=== PATIENT | male | born 1980 ===

== ENCOUNTER 2022-04-27 09:10 | Inpatient (IN) | payer SELFPAY ==
[2022-04-27] MEDS: NALOXONE 2 MG/2 ML INJ IV SCH ×2 (09:47→10:31)
[2022-04-27] MEDS: SODIUM CHLORIDE 0.9% 1000 ML 1,000 ML IV ONE ×2 (09:47→10:00)
[2022-04-27 09:51] LABS: Basophils % (Auto) 0.2 % (0.0-1.8); Eosinophils % (Auto) 0.1 % (0.0-4.3); Hematocrit 45.8 % (35.5-45.6); Hemoglobin 15.3 gm/dl (11.8-15.2); Lymphocytes # (Auto) 1.3 K/mm3 (1.2-5.4); Lymphocytes % (Auto) 6.3 % (13.4-35.0); Mean Corpuscular HGB Conc 33 % (32-34); Mean Corpuscular Volume 94 fl (84-94); Monocytes # (Auto) 0.7 K/mm3 (0.0-0.8); Monocytes % (Auto) 3.7 % (0.0-7.3); Platelet Count 135 K/mm3 (140-440); Red Blood Count 4.88 M/mm3 (3.65-5.03); Red Cell Distribution Width 16.2 % (13.2-15.2)
[2022-04-27 10:11] LABS: Albumin 4.2 g/dL (3.9-5); Calcium 8.2 mg/dL (8.4-10.2)
[2022-04-27 10:23] LABS: Chol/HDL Ratio 2.69 %
--- NOTE | 2022-04-27 11:49 | XRay Report ---
CHEST 1 VIEW 04/27/2022 11:36 AM INDICATION / CLINICAL INFORMATION: Dyspnea. COMPARISON: None available. FINDINGS: SUPPORT DEVICES: None. HEART / MEDIASTINUM: No significant abnormality. LUNGS / PLEURA: Hazy opacities in both mid and lower lungs No pneumothorax. ADDITIONAL FINDINGS: No significant additional findings. IMPRESSION: 1. Hazy opacities in both mid and lower lungs, concerning for multifocal pneumonia. Signer Name: Bj Richardson MD Signed: 04/27/2022 11:45 AM Workstation Name: [id number]
[2022-04-27] MEDS ORDERED: cefTRIAXone/NS 1 GM/50 ML 1 GM/50 ML BAG IV ONE (12:06)
[2022-04-27] MEDS ORDERED: dexAMETHasone 4 MG/ML VIAL IV ONE (12:16)
[2022-04-27 12:54] LABS: Amphetamine Screen,Urine Negative; Benzodiazepines Screen,Urine Negative; Methadone Screen,Urine Negative; Mucus,Urine FEW /HPF; Opiate Screen,Urine Negative
[2022-04-27 13:03] LABS: Color,Urine Straw (Yellow)
[2022-04-27 13:05] LABS: Cannabinoid Screen,Urine Positive; Cocaine Screen,Urine Positive
--- NOTE | 2022-04-27 14:21 | Cat Scan Report ---
CTA CHEST WITH CONTRAST INDICATION / CLINICAL INFORMATION: SOB 100ml of [id number]. TECHNIQUE: Axial CT images were obtained through the chest after injection of IV contrast. 3 plane WA P and/or 3D reconstructions were produced. All CT scans at this location are performed using CT dose reduction for ALARA by means of automated exposure control. COMPARISON: Chest radiograph earlier the same day FINDINGS: PULMONARY EMBOLUS: None. THORACIC AORTA: No significant abnormality. HEART: No significant abnormality. CORONARY ARTERY CALCIFICATION: Absent -- None. MEDIASTINUM / KATHY: No significant abnormality. PLEURA: No pleural effusion. No pneumothorax. LUNGS: Moderately extensive bilateral lower lobe airspace disease with mild airspace disease in the p osterior upper lobes as well. ADDITIONAL FINDINGS: None. UPPER ABDOMEN: No acute findings. SKELETAL STRUCTURES: No significant osseous abnormality. IMPRESSION: 1. No CT evidence for pulmonary embolism. 2. Multifocal pneumonia. Signer Name: Christina Moore MD Signed: 04/27/2022 2:16 PM Workstation Name: [id number]
--- NOTE | 2022-04-27 14:27 | Emergency Department Report ---
ED Shortness of Breath HPI - General Stated Complaint: OVERDOSE Time Seen by Provider: 04/27/22 09:33 Source: family Mode of arrival: Stretcher Limitations: Altered Mental Status - History of Present Illness Initial Comments: pt was brought in by EMS for possible overodse on thc and SOB , o2 sat 79-80 on RA on arrival , paced on face nask , stated that they were on their way from [place] to [place] when he was smoking thc MD Complaint: shortness of breath -: Gradual Severity: severe Pain Scale: 4 Consistency: constant Improves With: oxygen - Related Data Allergies Allergy/AdvReac Type Severity Reaction Status Date / Time No Known Allergies Allergy Unverified 04/27/22 09:41 ED Review of Systems ROS: Stated complaint: OVERDOSE Other details as noted in HPI Comment: Unobtainable due to pts medical conditions ED Past Medical Hx - Past Medical History Previous Medical History?: Yes Hx Hypertension: Yes Additional medical history: HYPERTHRYOIDISM ED Physical Exam - General Limitations: Altered Mental Status General appearance: alert, lethargic - Head Head exam: Present: atraumatic, normocephalic - Eye Eye exam: Present: normal appearance - ENT ENT exam: Present: mucous membranes moist - Respiratory Respiratory exam: Present: wheezes. Absent: respiratory distress - Cardiovascular Cardiovascular Exam: Present: regular rate, normal rhythm. Absent: systolic murmur, diastolic murmur, rubs, gallop - GI/Abdominal GI/Abdominal exam: Present: soft, normal bowel sounds - Rectal Rectal exam: Present: deferred - Extremities Exam Extremities exam: Present: normal inspection - Back Exam Back exam: Present: normal inspection - Expanded Neurological Exam Expanded Best Eye Response ([place]): (4) open spontaneously Best Motor Response ([place]): (5) localizes to pain Best Verbal Response ([place]): (4) confused conversation [place] Total: 13 - Psychiatric Psychiatric exam: Present: normal affect, normal mood - Skin Skin exam: Present: warm, dry, intact, normal color. Absent: rash ED Course Vital Signs 04/27/22 04/27/22 04/27/22 09:25 09:31 09:45 Pulse Rate 99 H 72 81 Respiratory 18 13 15 Rate Blood Pressure 156/90 156/90 132/95 Blood Pressure [Left] O2 Sat by Pulse 79 L 79 L 100 Oximetry 04/27/22 04/27/22 04/27/22 10:01 12:05 13:13 Pulse Rate 92 H 68 64 Respiratory 17 18 18 Rate Blood Pressure 138/94 Blood Pressure 113/77 124/74 [Left] O2 Sat by Pulse 99 99 99 Oximetry ED Medical Decision Making - Lab Data Result diagrams: 04/27/22 09:41 04/27/22 09:41 Critical care attestation.: If time is entered above; I have spent that time in minutes in the direct care of this critically ill patient, excluding procedure time. ED Disposition Clinical Impression: SOB (shortness of breath), Hypoxia, JOSÉ MIGUEL (acute kidney injury), Elevated troponin, Pneumonia Disposition: ADMITTED INPATIENT Is pt being admited?: Yes Does the pt Need Aspirin: No Condition: Critical Instructions: Bacterial Pneumonia (ED) Referrals: NGUYEN FRANCO MD [Primary Care Provider] - 3-5 Days
--- NOTE | 2022-04-27 20:11 | History and Physical Report ---
History of Present Illness Date of examination: 04/27/22 Date of admission: 04/27/2022 Chief complaint: Altered sensorium and severe hypoxia few hours History of present illness: 42-year-old -[place]ian male was brought in by EMS for severely altered sensorium and hypoxia. Patient was lethargic and hypoxic in the emergency room. Looked obtunded. Apparently patient was smoking marijuana while driving from [place] to [place]. Has done cocaine 2 days ago. In the emergency room patient was hypoxic with oxygen saturations between 60 and 79 and 80 on room air on arrival. Patient had to be put on 100% nonrebreather. No fever or chills. No cough. Shortness of breath present. Review of Systems ROS: Constitutional: Severe weakness and shortness of breath HEENT no sore throat no post nasal drip no diplopia Neck no neck stiffness no lymph gland enlargement Chest and lungs shortness of breath present. No cough. 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 Skin no rash no itching Psychiatric no depression no homicidal or suicidal tendencies Hematologic no lymphedema or bruising Endocrine no polydipsia no polyuria no cold intolerance no heat intolerance Past History Past Medical History: hypertension, other (Thyrotoxicosis) Past Surgical History: No surgical history Social history: lives with family, smoking, full code, other (Marijuana use and cocaine use) Family history: hypertension Medications and Allergies Allergies Allergy/AdvReac Type Severity Reaction Status Date / Time No Known Allergies Allergy Verified 04/27/22 21:12 Home Medications Medication Instructions Recorded Confirmed Last Taken Type No Known Home Medications [No 04/27/22 04/27/22 Unknown History Reported Home Medications] Exam - Constitutional Vitals: Temp Pulse Resp BP Pulse Ox 63 13 124/81 97 04/27/22 19:01 04/27/22 19:01 04/27/22 19:01 04/27/22 19:01 General appearance: Present: severe distress, well-nourished - EENT Eyes: Present: PERRL ENT: hearing intact, clear oral mucosa - Neck Neck: Present: supple, normal ROM - Respiratory Respiratory effort: normal Respiratory: bilateral: CTA, rhonchi, wheezing - Cardiovascular Heart rate: 98 Rhythm: regular Heart Sounds: Present: S1 & S2. Absent: rub, click - Extremities Extremities: pulses symmetrical, No edema Peripheral Pulses: within normal limits - Abdominal General gastrointestinal: Present: soft, non-tender, non-distended, normal bowel sounds Male genitourinary: Present: normal - Integumentary Integumentary: Present: clear, warm, dry - Musculoskeletal Musculoskeletal: gait normal, strength equal bilaterally - Psychiatric Psychiatric: appropriate mood/affect, intact judgment & insight - Neurologic Neurologic: CNII-XII intact, moves all extremities HEART Score - HEART Score Troponin: Troponin T 0.118 ng/mL (0.00-0.029) H* D 04/27/22 11:35 Results - Labs CBC & Chem 7: 04/27/22 09:41 04/27/22 09:41 Labs: Laboratory Last Values WBC 20.1 K/mm3 (4.5-11.0) H 04/27/22 09:41 RBC 4.88 M/mm3 (3.65-5.03) 04/27/22 09:41 Hgb 15.3 gm/dl (11.8-15.2) H 04/27/22 09:41 Hct 45.8 % (35.5-45.6) H 04/27/22 09:41 MCV 94 fl (84-94) 04/27/22 09:41 MCH 31 pg (28-32) 04/27/22 09:41 MCHC 33 % (32-34) 04/27/22 09:41 RDW 16.2 % (13.2-15.2) H 04/27/22 09:41 Plt Count 135 K/mm3 (140-440) L 04/27/22 09:41 Lymph % (Auto) 6.3 % (13.4-35.0) L 04/27/22 09:41 [place] % (Auto) 3.7 % (0.0-7.3) 04/27/22 09:41 Eos % (Auto) 0.1 % (0.0-4.3) 04/27/22 09:41 Baso % (Auto) 0.2 % (0.0-1.8) 04/27/22 09:41 Lymph # (Auto) 1.3 K/mm3 (1.2-5.4) 04/27/22 09:41 [place] # (Auto) 0.7 K/mm3 (0.0-0.8) 04/27/22 09:41 Eos # (Auto) 0.0 K/mm3 (0.0-0.4) 04/27/22 09:41 Baso # (Auto) 0.0 K/mm3 (0.0-0.1) 04/27/22 09:41 Seg Neutrophils % 89.7 % (40.0-70.0) H 04/27/22 09:41 Seg Neutrophils # 18.1 K/mm3 (1.8-7.7) H 04/27/22 09:41 Sodium 139 mmol/L (137-145) 04/27/22 09:41 Potassium 3.9 mmol/L (3.6-5.0) 04/27/22 09:41 Chloride 101.3 mmol/L (98-107) 04/27/22 09:41 Carbon Dioxide 25 mmol/L (22-30) 04/27/22 09:41 Anion Gap 17 mmol/L 04/27/22 09:41 BUN 13 mg/dL (9-20) 04/27/22 09:41 Creatinine 1.8 mg/dL (0.8-1.3) H 04/27/22 09:41 Estimated GFR 41 ml/min 04/27/22 09:41 BUN/Creatinine Ratio 7 % 04/27/22 09:41 Glucose 280 mg/dL (75-100) H 04/27/22 09:41 Lactic Acid 1.90 mmol/L (0.7-2.0) 04/27/22 14:12 Calcium 8.2 mg/dL (8.4-10.2) L 04/27/22 09:41 Total Bilirubin 0.20 mg/dL (0.1-1.2) 04/27/22 09:41 AST 75 units/L (5-40) H 04/27/22 09:41 ALT 38 units/L (7-56) 04/27/22 09:41 Alkaline Phosphatase 97 units/L (35-129) 04/27/22 09:41 Total Creatine Kinase 3543 units/L (55-170) H 04/27/22 09:41 Troponin T 0.118 ng/mL (0.00-0.029) H* D 04/27/22 11:35 Total Protein 6.9 g/dL (6.3-8.2) 04/27/22 09:41 Albumin 4.2 g/dL (3.9-5) 04/27/22 09:41 Albumin/Globulin Ratio 1.6 % 04/27/22 09:41 Triglycerides 67 mg/dL (2-149) 04/27/22 09:41 Cholesterol 253 mg/dL (50-199) H 04/27/22 09:41 LDL Cholesterol Direct 152 mg/dL (50-130) H 04/27/22 09:41 HDL Cholesterol 94 mg/dL (40-59) H 04/27/22 09:41 Cholesterol/HDL Ratio 2.69 % 04/27/22 09:41 Urine Color Straw (Yellow) 04/27/22 Unknown Urine Turbidity Slightly cloudy (Clear) 04/27/22 Unknown Specific [place] (Man) 1.010 (1.003-1.030) 04/27/22 Unknown Ur Protein (Man) Negative mg/dL (Negative) 04/27/22 Unknown Ur Ketones (Man) Negative (Negative) 04/27/22 Unknown Ur Nitrite (Man) Negative (Negative) 04/27/22 Unknown Ur Reducing Substances Not Reportable 04/27/22 Unknown Urine Bilirubin (Man) Negative (Negative) 04/27/22 Unknown Urine Ictotest Not Reportable 04/27/22 Unknown Leukocyte Esterase (Man) Negative (Negative) 04/27/22 Unknown Urine WBC (Auto) 1.0 /HPF (0.0-6.0) 04/27/22 Unknown Urine RBC (Auto) 2.0 /HPF (0.0-6.0) 04/27/22 Unknown U Epithel Cells (Auto) 1.0 /HPF (0-13.0) 04/27/22 Unknown Urine RBC (Manual) Negative (Negative) 04/27/22 Unknown Urine Mucus Few /HPF 04/27/22 Unknown Salicylates < 0.3 mg/dL (2.8-20.0) L 04/27/22 09:41 Urine Opiates Screen Negative 04/27/22 Unknown Urine Methadone Screen Negative 04/27/22 Unknown Acetaminophen 5.0 ug/mL (10.0-30.0) L 04/27/22 09:41 Ur Barbiturates Screen Negative 04/27/22 Unknown Ur Phencyclidine Scrn Negative 04/27/22 Unknown Ur Amphetamines Screen Negative 04/27/22 Unknown U Benzodiazepines Scrn Negative 04/27/22 Unknown Urine Cocaine Screen Positive 04/27/22 Unknown U Marijuana (THC) Screen Positive 04/27/22 Unknown Drugs of Abuse Note Disclamer 04/27/22 Unknown Plasma/Serum Alcohol < 0.01 % (0-0.07) 04/27/22 09:41 Short CBC 04/27/22 Range/Units 09:41 WBC 20.1 H (4.5-11.0) K/mm3 Hgb 15.3 H (11.8-15.2) gm/dl Hct 45.8 H (35.5-45.6) % Plt Count 135 L (140-440) K/mm3 BMP 04/27/22 09:41 Sodium 139 Potassium 3.9 Chloride 101.3 Carbon Dioxide 25 BUN 13 Creatinine 1.8 H Glucose 280 H Calcium 8.2 L Cardiac Enzymes 04/27/22 04/27/22 Range/Units 09:41 11:35 Total Creatine Kinase 3543 H (55-170) units/L Troponin T 0.061 H 0.118 H* D (0.00-0.029) ng/mL Liver Function 04/27/22 Range/Units 09:41 Total Bilirubin 0.20 (0.1-1.2) mg/dL AST 75 H (5-40) units/L ALT 38 (7-56) units/L Alkaline Phosphatase 97 (35-129) units/L Albumin 4.2 (3.9-5) g/dL Urine 04/27/22 Range/Units Unknown Urine Color Straw (Yellow) Short CBC 04/27/22 Range/Units 09:41 WBC 20.1 H (4.5-11.0) K/mm3 Hgb 15.3 H (11.8-15.2) gm/dl Hct 45.8 H (35.5-45.6) % Plt Count 135 L (140-440) K/mm3 [facility] 04/27/22 09:41 Sodium 139 Potassium 3.9 Chloride 101.3 Carbon Dioxide 25 BUN 13 Creatinine 1.8 H Glucose 280 H Calcium 8.2 L Cardiac Enzymes 04/27/22 04/27/22 Range/Units 09:41 11:35 Total Creatine Kinase 3543 H (55-170) units/L Troponin T 0.061 H 0.118 H* D (0.00-0.029) ng/mL Liver Function 04/27/22 Range/Units 09:41 Total Bilirubin 0.20 (0.1-1.2) mg/dL AST 75 H (5-40) units/L ALT 38 (7-56) units/L Alkaline Phosphatase 97 (35-129) units/L Albumin 4.2 (3.9-5) g/dL Urine 04/27/22 Range/Units Unknown Urine Color Straw (Yellow) - Imaging and Cardiology EKG: report reviewed (Sinus rhythm heart rate of 79/min LVH with) Chest x-ray: report reviewed Imaging and Cardiology: Chest x-ray Hazy opacities in both mid and lower lungs, concerning for multifocal pneumonia Chest CTA No CT evidence for pulmonary embolism Multifocal pneumonia Assessment and Plan Advance Directives: Yes (Full code) VTE prophylaxis?: Chemical Plan of care discussed with patient/family: Yes - Patient Problems (1) Sepsis Current Visit: Yes Status: Acute Plan to address problem: Present on admission High white count and lactic acidosis consistent with sepsis IV antibiotics (2) Acute encephalopathy Current Visit: Yes Status: Acute Plan to address problem: Patient was totally confused and obtunded for couple hours in the emergency room Possibly secondary to hypoxia Patient improved with oxygen administration During my examination patient was able to talk coherently and given history (3) Acute respiratory failure with hypoxia Current Visit: Yes Status: Acute Plan to address problem: Patient has bilateral pneumonia Rule out code IV ceftriaxone and IV Zithromax initiated DuoNebs as needed (4) Bilateral pneumonia Current Visit: Yes Status: Acute Plan to address problem: Treated as community-acquired pneumonia Rule out COVID IV Zithromax and IV Rocephin for now (5) Person under investigation for COVID-19 Current Visit: Yes Status: Acute Plan to address problem: Respiratory isolation until COVID test results come back (6) Hypertension Current Visit: Yes Status: Chronic Qualifiers: Hypertension type: primary hypertension Qualified Code(s): I10 - Essential (primary) hypertension Plan to address problem: Continue home antihypertensives and adjust medications as necessary (7) JOSÉ MIGUEL (acute kidney injury) Current Visit: Yes Status: Acute Plan to address problem: IV fluids for now Vasomotor nephropathy (8) Hyperglycemia Current Visit: Yes Status: Acute Plan to address problem: No history of diabetes Check hemoglobin A1c Coverage for now Initiated metformin (9) Hyperlipidemia Current Visit: Yes Status: Acute Qualifiers: Hyperlipidemia type: mixed hyperlipidemia Qualified Code(s): E78.2 - Mixed hyperlipidemia Plan to address problem: Newly diagnosed Patient does not give history of hyperlipidemia Patient started on Crestor 20 mg once a day (10) Thyrotoxicosis Current Visit: Yes Status: Chronic Plan to address problem: Methimazole continued (11) DVT prophylaxis Current Visit: Yes Status: Acute Plan to address problem: On heparin and GI prophylaxis (12) Advance care planning Current Visit: Yes Status: Acute Plan to address problem: Disease education conducted care plan discussed, diagnosis and prognosis discussed. Patient is full code.
[2022-04-27] MEDS ORDERED: METOCLOPRAMIDE 10 MG/2 ML INJ IV PRN (20:47)
[2022-04-27] MEDS ORDERED: oxyCODONE /ACETAMINOPHEN 5-325MG TAB PO PRN (20:47)
[2022-04-27] MEDS ORDERED: MORPHINE 2 MG/1 ML INJ IV PRN (20:47)
[2022-04-27] MEDS ORDERED: ONDANSETRON 4 MG/2 ML INJ IV PRN (20:47)
[2022-04-27] MEDS ORDERED: ACETAMINOPHEN 325 MG TAB PO PRN (20:47)
[2022-04-27] MEDS ORDERED: IPRATROPIUM/ALBUTEROL SULFATE 3 ML AMPUL.NEB IH PRN (20:57)
[2022-04-27] MEDS ORDERED: AZITHROMYCIN/NS 500 MG/250 ML 500 MG/250 ML BAG IV SCH (21:00)
[2022-04-27] MEDS: cefTRIAXone/NS 2 GM/100 ML 2 GM/100 ML BAG IV SCH (23:16)
[2022-04-27] MEDS: methylPREDNISolone Sod Succinate 125 MG/2 ML INJ IV SCH (23:17)
[2022-04-27] MEDS: HEPARIN 5,000 UNIT/1 ML VIAL SUB-Q SCH (23:17)
[2022-04-27] MEDS: SODIUM CHLORIDE 0.9% 1000 ML 1,000 ML IV SCH (23:20)
[2022-04-28] MEDS: methylPREDNISolone Sod Succinate 125 MG/2 ML INJ IV SCH ×3 (06:26→22:47)
[2022-04-28] MEDS: IPRATROPIUM/ALBUTEROL SULFATE 3 ML AMPUL.NEB IH SCH ×3 (07:53→19:50)
[2022-04-28 07:59] LABS: Basophils % (Auto) 0.1 % (0.0-1.8); Hemoglobin 15.1 gm/dl (11.8-15.2); Lymphocytes # (Auto) 1.1 K/mm3 (1.2-5.4); Lymphocytes % (Auto) 10.2 % (13.4-35.0); Mean Corpuscular HGB Conc 33 % (32-34); Mean Corpuscular Volume 94 fl (84-94); Monocytes # (Auto) 0.2 K/mm3 (0.0-0.8); Monocytes % (Auto) 1.4 % (0.0-7.3); Red Blood Count 4.88 M/mm3 (3.65-5.03)
[2022-04-28] MEDS ORDERED: METOCLOPRAMIDE 10 MG/2 ML INJ IV PRN (08:00)
[2022-04-28 08:18] LABS: Platelet Count 120 K/mm3 (140-440)
[2022-04-28 08:24] LABS: Alanine Aminotransferase 34 units/L (7-56); Albumin 4.2 g/dL (3.9-5); BUN/Creatinine Ratio 11; Blood Urea Nitrogen 13 mg/dL (9-20); Calcium 8.4 mg/dL (8.4-10.2); Hemolysis Index 3
[2022-04-28] MEDS: INSULIN LISPRO 100 UNIT/ML SUB-Q SCH ×4 (08:47→22:48)
[2022-04-28 08:54] LABS: C-Reactive Protein 0.6 mg/dL (0.00-1.30)
[2022-04-28] MEDS: cefTRIAXone/NS 2 GM/100 ML 2 GM/100 ML BAG IV SCH (09:01)
[2022-04-28] MEDS: methIMAzole 5 MG TAB PO SCH (09:01)
[2022-04-28] MEDS: HEPARIN 5,000 UNIT/1 ML VIAL SUB-Q SCH ×2 (09:02→22:47)
--- NOTE | 2022-04-28 09:23 | Electrocardiograph Report ---
[facility] Test Date: 2022-04-27 Test Time: 09:26:45 Pat Name: KAY ATKINSON Department: Room: A356 Gender: M Customer Solutions Supervisor: MERI : 1980 Requested By: NIKOLE HAZEL Order Number: [id number] Reading MD: Wes Valdez Measurements Intervals [place] Rate: 79 P: 67 NM: 162 QRS: 76 QRSD: 107 T: 262 QT: 441 QTc: 507 Interpretive Statements Sinus rhythm Probable LVH with secondary repol abnrm No previous ECG available for comparison Electronically Signed On 04-28-2022 9:23:07 EDT by Wes Valdez
[2022-04-28 10:53] LABS: Free T4 (Free Thyroxine) 0.26 ng/dL (0.76-1.46)
--- NOTE | 2022-04-28 11:05 | Event Note ---
Date: 04/28/22 patient admitted with acute hypoxic respiratory failure after smoking THC in a car and doing cocaine. Patient has been weaned to 2 liters NC with good sats. CT scan shows no PE but bilateral lower lobe airspace disease. Patient could have aspirated over the weekend. Suggest Psych consult for polysubstance abuse. Change to PO Levaquin and treat for 7 days. Stop steroids. Smoking cessation. Wean FiO2 to off. No further recs.
[2022-04-28] MEDS: SODIUM CHLORIDE 0.9% 1000 ML 1,000 ML IV SCH (14:47)
[2022-04-28] MEDS ORDERED: AZITHROMYCIN 250 MG TAB PO SCH (22:00)
[2022-04-29] MEDS: methylPREDNISolone Sod Succinate 125 MG/2 ML INJ IV SCH (06:19)
--- NOTE | 2022-04-29 08:23 | Progress Note ---
Assessment and Plan - Patient Problems (1) Sepsis Current Visit: Yes Status: Acute Plan to address problem: Present on admission High white count and lactic acidosis consistent with sepsis IV antibiotics (2) Acute encephalopathy Current Visit: Yes Status: Acute Plan to address problem: Patient was totally confused and obtunded for couple hours in the emergency room Possibly secondary to hypoxia Patient improved with oxygen administration During my examination patient was able to talk coherently and given history (3) Acute respiratory failure with hypoxia Current Visit: Yes Status: Acute Plan to address problem: Patient has bilateral pneumonia Rule out code IV ceftriaxone and IV Zithromax initiated DuoNebs as needed (4) Bilateral pneumonia Current Visit: Yes Status: Acute Plan to address problem: Treated as community-acquired pneumonia Rule out COVID IV Zithromax and IV Rocephin for now (5) Person under investigation for COVID-19 Current Visit: Yes Status: Acute Plan to address problem: Respiratory isolation until COVID test results come back (6) Hypertension Current Visit: Yes Status: Chronic Qualifiers: Hypertension type: primary hypertension Qualified Code(s): I10 - Essential (primary) hypertension Plan to address problem: Continue home antihypertensives and adjust medications as necessary (7) JOSÉ MIGUEL (acute kidney injury) Current Visit: Yes Status: Acute Plan to address problem: IV fluids for now Vasomotor nephropathy (8) Hyperglycemia Current Visit: Yes Status: Acute Plan to address problem: No history of diabetes Check hemoglobin A1c Coverage for now Initiated metformin (9) Hyperlipidemia Current Visit: Yes Status: Acute Qualifiers: Hyperlipidemia type: mixed hyperlipidemia Qualified Code(s): E78.2 - Mixed hyperlipidemia Plan to address problem: Newly diagnosed Patient does not give history of hyperlipidemia Patient started on Crestor 20 mg once a day (10) Thyrotoxicosis Current Visit: Yes Status: Chronic Plan to address problem: Methimazole continued (11) DVT prophylaxis Current Visit: Yes Status: Acute Plan to address problem: On heparin and GI prophylaxis (12) Advance care planning Current Visit: Yes Status: Acute Plan to address problem: Disease education conducted care plan discussed, diagnosis and prognosis discussed. Patient is full code. Subjective Date of service: 04/28/22 Objective - Constitutional Vitals: Vital Signs - 12hr 04/28/22 04/28/22 04/28/22 21:11 22:00 22:51 Temperature 98.6 F Pulse Rate 65 Respiratory 18 18 20 Rate Blood Pressure 132/80 O2 Sat by Pulse 99 99 Oximetry 04/28/22 23:51 Temperature Pulse Rate Respiratory 18 Rate Blood Pressure O2 Sat by Pulse Oximetry General appearance: Present: no acute distress, well-nourished - EENT Eyes: PERRL, EOM intact ENT: hearing intact, clear oral mucosa Ears: bilateral: normal - Neck Neck: supple, normal ROM - Respiratory Respiratory effort: normal Respiratory: bilateral: CTA - Breasts Breasts: normal - Cardiovascular Rhythm: regular Heart Sounds: Present: S1 & S2. Absent: gallop, rub Extremities: pulses intact, No edema, normal color, Full ROM - Gastrointestinal General gastrointestinal: Present: soft, non-tender, non-distended, normal bowel sounds - Genitourinary Male genitourinary: normal - Integumentary Integumentary: clear, warm, dry - Musculoskeletal Musculoskeletal: 1, strength equal bilaterally - Neurologic Neurologic: moves all extremities - Psychiatric Psychiatric: memory intact, appropriate mood/affect, intact judgment & insight - Labs CBC & Chem 7: 04/28/22 07:08 04/28/22 07:49 Labs: Abnormal lab results 04/28/22 04/28/22 04/28/22 Range/Units 07:08 07:49 07:49 Glucose 114 H 118 H (75-100) mg/dL POC Glucose (70-105) mg/dL AST 57 H (5-40) units/L Lactate Dehydrogenase 336 H (91-180) units/L TSH 38.640 H (0.270-4.200) mlU/mL Free T4 0.26 L (0.76-1.46) ng/dL 04/28/22 04/28/22 04/28/22 Range/Units 08:42 11:24 16:07 Glucose (75-100) mg/dL POC Glucose 144 H 181 H 126 H (70-105) mg/dL AST (5-40) units/L Lactate Dehydrogenase (91-180) units/L TSH (0.270-4.200) mlU/mL Free T4 (0.76-1.46) ng/dL 04/28/22 Range/Units 21:33 Glucose (75-100) mg/dL POC Glucose 149 H (70-105) mg/dL AST (5-40) units/L Lactate Dehydrogenase (91-180) units/L TSH (0.270-4.200) mlU/mL Free T4 (0.76-1.46) ng/dL HEART Score - HEART Score Troponin: Troponin T 0.118 ng/mL (0.00-0.029) H* D 04/27/22 11:35
--- NOTE | 2022-04-29 08:24 | Discharge Summary ---
Providers - Providers Date of Admission: 04/27/22 20:47 Date of discharge: 04/29/22 Attending physician: SUMI BOWERS Primary care physician: NGUYEN FRANCO Hospitalization Condition: Critical Disposition: 01 HOME / SELF CARE / HOMELESS - Discharge Diagnoses (1) Sepsis Status: Acute (2) Acute encephalopathy Status: Acute (3) Acute respiratory failure with hypoxia Status: Acute (4) Bilateral pneumonia Status: Acute (5) Person under investigation for COVID-19 Status: Acute (6) Hypertension Status: Chronic Qualifiers: Hypertension type: primary hypertension Qualified Code(s): I10 - Essential (primary) hypertension (7) JOSÉ MIGUEL (acute kidney injury) Status: Acute (8) Hyperglycemia Status: Acute (9) Hyperlipidemia Status: Acute Qualifiers: Hyperlipidemia type: mixed hyperlipidemia Qualified Code(s): E78.2 - Mixed hyperlipidemia (10) Thyrotoxicosis Status: Chronic (11) DVT prophylaxis Status: Acute (12) Advance care planning Status: Acute Exam - Constitutional Vitals: Temp Pulse Resp BP Pulse Ox 98.6 F 65 18 132/80 99 04/28/22 21:11 04/28/22 21:11 04/28/22 23:51 04/28/22 21:11 04/28/22 22:00 General appearance: Present: no acute distress, well-nourished - EENT Eyes: Present: PERRL ENT: hearing intact, clear oral mucosa - Neck Neck: Present: supple, normal ROM - Respiratory Respiratory effort: normal Respiratory: bilateral: CTA - Cardiovascular Heart Sounds: Present: S1 & S2. Absent: rub, click - Extremities Extremities: pulses symmetrical, No edema Peripheral Pulses: within normal limits - Abdominal General gastrointestinal: Present: soft, non-tender, non-distended, normal bowel sounds Male genitourinary: Present: normal - Integumentary Integumentary: Present: clear, warm, dry - Musculoskeletal Musculoskeletal: gait normal, strength equal bilaterally - Psychiatric Psychiatric: appropriate mood/affect, intact judgment & insight - Neurologic Neurologic: CNII-XII intact, moves all extremities Plan Follow up with: NGUYEN FRANCO MD [Primary Care Provider] - 3-5 Days Prescriptions: levoFLOXacin [Levaquin] 750 mg PO QDAY 10 Days #10 tablet Prednisone [predniSONE 5 mg (6-Day Pack, 21 Tabs)] 5 mg PO .TAPER #1
[2022-04-29] MEDS: INSULIN LISPRO 100 UNIT/ML SUB-Q SCH ×2 (08:33→11:58)
[2022-04-29] MEDS: IPRATROPIUM/ALBUTEROL SULFATE 3 ML AMPUL.NEB IH SCH (09:01)
[2022-04-29] MEDS: HEPARIN 5,000 UNIT/1 ML VIAL SUB-Q SCH (09:24)
[2022-04-29] MEDS: cefTRIAXone/NS 2 GM/100 ML 2 GM/100 ML BAG IV SCH (09:24)
[2022-04-29] MEDS: methIMAzole 5 MG TAB PO SCH (09:24)
[2022-04-29 09:48] VITALS: BP 137/65
[2022-04-29] MEDS ORDERED: NICOTINE 21 MG/24 HR PATCH TD SCH (10:00)
[2022-04-30] MEDS ORDERED: methIMAzole 5 MG TAB PO SCH (10:00)
== END 2022-04-29 12:48 | disposition home or self-care (01) | DRG 871 ==
LOC: ED 09:10 → 3A 20:47
PROVIDERS: ADMIT Internal Medicine; ATTEND Internal Medicine
DX: A41.9 Sepsis, unspecified organism (principal); J18.9 Pneumonia, unspecified organism; J96.01 Acute respiratory failure with hypoxia; N17.0 Acute kidney failure with tubular necrosis; G93.40 Encephalopathy, unspecified; R73.9 Hyperglycemia, unspecified; I10 Essential (primary) hypertension; E05.90 Thyrotoxicosis, unspecified without thyrotoxic crisis or storm; F17.200 Nicotine dependence, unspecified, uncomplicated; Z71.6 Tobacco abuse counseling; F14.10 Cocaine abuse, uncomplicated; F12.10 Cannabis abuse, uncomplicated; E78.2 Mixed hyperlipidemia
CPT/HCPCS: 36415; 71045; 71275; 80053; 80061; 80307; 80320; 81001; 82140; 82550; 82728; 82947; 82962; 83615; 84145; 84439; 84443; 84484; 85025; 85379; 86140; 93005; 94640; 94760; 99406; G0378; G0480; J0456; J0696; J1100; J1644; J2270; J2310; J2405; J2930; J7030; Q9967